=== PATIENT | female | born 1975 | race American Indian/Alaskan Native ===

== ENCOUNTER 2020-10-13 17:00 | Outpatient (REF) | payer MEDICAID, SELFPAY | END 2020-10-13 17:01 | disposition home or self-care (01) | LOC: HO.LAB 17:00 | PROVIDERS: PCP Student in an Organized Health Care Education/Training Program; Visit Provider Internal Medicine | DX: Z20.828 Contact with and (suspected) exposure to other viral communicable diseases (principal) | CPT/HCPCS: C9803; U0003 ==

== ENCOUNTER 2020-10-29 13:18 | Outpatient (REF) | payer MEDICAID, SELFPAY | END 2020-10-29 13:19 | disposition home or self-care (01) | LOC: HO.LAB 13:18 | PROVIDERS: PCP Student in an Organized Health Care Education/Training Program; Visit Provider Internal Medicine | DX: Z20.828 Contact with and (suspected) exposure to other viral communicable diseases (principal) | CPT/HCPCS: C9803; U0003 ==

== ENCOUNTER 2021-08-16 16:30 | Emergency (ER) | payer MEDICAID, SELFPAY ==
--- NOTE | ~2021-08-16 | XR_ITS ---
EXAMINATION: XR LUMBOSACRAL SPINE CLINICAL INFORMATION: Lumbar pain COMPARISON: None TECHNIQUE: Three views of the lumbosacral spine. FINDINGS: The vertebral bodies and posterior elements are unremarkable. There is minimal scoliosis convex to the left which could be positional. The disc spaces are preserved and the vertebral alignment is normal. The paraspinal soft tissues are normal. XR/XR lumbar spine 2-3V IMPRESSION: No acute abnormality seen
--- NOTE | 2021-08-16 17:00 | ED.GENADULT ---
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 Pain radiates down left leg. H/o SI joint inflammation and feels similar. No numbness/tingling/incontinence/fevers/chills. Related Data Previous Rx's Medication Instructions Recorded cyclobenzaprine 10 mg tablet 10 mg PO TID PRN #10 tab 08/16/21 ibuprofen 600 mg tablet 600 mg PO Q8H PRN #20 tab 08/16/21 lidocaine 5 % topical patch 1 patch TOPICAL DAILY #15 ea 08/16/21 (Lidoderm) Allergies Allergy/AdvReac Type Severity Reaction Status Date / Time No Known Allergies Allergy Unverified 07/16/20 17:43 Review of Systems Review of Systems: Yes all other systems are reviewed and are negative Constitutional: Constitutional: Reports no additional constitutional complaints, Denies body ache(s), Denies chills, Denies fever(s), Denies headache(s) and Denies weakness Eyes: Eyes: Reports no additional eye complaints and Denies change in vision ENT: Reports system reviewed and no additional complaints, except as documented, Denies dizziness, Denies headache(s), Denies nasal congestion, Denies nasal discharge and Denies neck pain Cardiovascular: Cardiovascular: Reports no additional cardiovascular complaints, Denies chest pain, Denies leg edema and Denies dyspnea Respiratory: Respiratory: Reports no additional respiratory complaints, Denies cough and Denies dyspnea Gastrointestinal: Gastrointestinal: Reports no additional gastrointestinal complaints, Denies abdominal pain, Denies diarrhea, Denies nausea and Denies vomiting Genitourinary: Genitourinary: Reports no additional female genitourinary complaints and Denies urinary incontinence Musculoskeletal: Musculoskeletal: Reports no additional musculoskeletal complaints, Reports back pain, Denies arthralgias, Denies joint swelling, Denies neck pain, Denies numbness and Denies tingling Integumentary/Breasts: Skin/Breast: Reports system reviewed and no additional complaints, except as docu and Denies rash Neurologic: Reports system reviewed and no additional complaints, except as documented, Denies Abnormal speech present, Denies dizziness, Denies headache(s), Denies numbness, Denies tingling and Denies weakness PMFSH Past Medical History Attestation statement: The following information was validated with the patient. Source: old records reviewed and nursing notes reviewed Social History Social History Advance Directives: No Advance Directives Information Provided: Yes Physical Exam Vital Signs: Vital Signs: Last Vital Signs Temp 98.8 F 08/16/21 17:01 Pulse 78 08/16/21 17:01 Resp 20 08/16/21 17:01 BP 135/87 08/16/21 17:01 Pulse Ox 100 08/16/21 17:01 Body Mass Index 23.1 Const: General: cooperative, healthy appearing, comfortable and no acute distress Orientation/consciousness: patient oriented x3 Limitations: no limitations HENMT: Head: Yes normal to inspection Ears: hearing grossly normal bilaterally General nose exam: Normal external nose present Face and sinus: Yes normal facial exam Mouth: Normal oral and palatal mucosa present Throat: Yes posterior oropharynx normal Eyes: General: appearance normal, both eyes and all related structures Pupils: Equal, round and reactive pupils present Neck: Neck: Yes normal visual inspection Chest: Chest palpation & inspection: normal inspection of the chest Resp: Effort & Inspection: normal respiratory effort Auscultation: clear to auscultation bilaterally Cardio: Rate: regular rate Rhythm: regular rhythm Peripheral pulses: Peripheral pulses 2+ throughout GI: Inspection: Yes normal to inspection Palpation (GI): Soft to palpation and nontender Auscultation: normal bowel sounds Back/Spine/Pelvis: Other: Tenderness to the lumbar low spine with no step offs or deformiries. Tenderness to the posterior left SI joint. Thoracic/Lumbar Spine: thoracic and lumbar spine normal to inspection Skin: General skin exam: no rashes or lesions noted Neuro: General: patient oriented x3, no focal motor deficits and normal sensation to monofilament Cranial nerves: Yes CN's II-XII intact bilaterally, Yes Equal, round and reactive pupils present, Yes Normal facial strength present and Yes Midline tongue present Cognition (Neuro): normal cognition Speech: No Abnormal speech present Gait exam (Neuro): Normal gait present Motor exam (neuro): 5/5 motor strength present throughout Sensory Exam: Normal double simultaneous stimulation for sensation Deep tendon reflexes (DTR's): Right patellar reflex intensity grade: 2+ and Left patellar reflex intensity grade: 2+ Coordination: tandem gait normal Extrem: General: Yes normal to inspection Course Course Course Narrative: 1700-This is a rapid medical exam. Geoffrey was doing heavy strength training and now feels pain in left lower back. Radiates down left leg. Will check lumbar x-ray. Deferred HPI, ROS or PE to primary providers. 1830-X-ray shows no bony abnormality. Exam c/w with sacroilitis. Will refer to ortho Reviewed worrisome signs/symptoms with patient and when to return to ED. Comfortable with discharge home. Medical Decision Making Medical Records Medical records reviewed: Yes I reviewed the patient's medical records. Lab Data Lab results reviewed: Yes I reviewed the patient's lab results. Imaging Data lumbar x-ray: Attestation: I personally reviewed and interpreted this imaging study as follows: Radiologist's impression: TECHNIQUE: Three views of the lumbosacral spine. FINDINGS: The vertebral bodies and posterior elements are unremarkable. There is minimal scoliosis convex to the left which could be positional. The disc spaces are preserved and the vertebral alignment is normal. The paraspinal soft tissues are normal. XR/XR lumbar spine 2-3V IMPRESSION: No acute abnormality seen Discharge Plan Discharge Clinical Impression: SI (sacroiliac) joint inflammation Patient Disposition: Home, Self-Care Instructions: Sacroiliitis (ED) Additional Instructions: heat or ice gentle stretching X-rays show no bony abnormality Prescriptions: New ibuprofen 600 mg tablet 600 mg PO Q8H PRN (Reason: pain) Qty: 20 RF: 0 cyclobenzaprine 10 mg tablet 10 mg PO TID PRN (Reason: muscle spasm) Qty: 10 RF: 0 lidocaine [Lidoderm] 5 % adhesive patch,medicated 1 patch topical DAILY Qty: 15 RF: 0 Referrals: Jovon Pete MD [Physician] - 2 days Print Language: Georgian
[2021-08-16 17:01] VITALS: BP 135/87; PULSE 78; RESP 20; TEMP 37.1; O2SAT 100; BMI 23.1
== END 2021-08-16 18:49 | disposition home or self-care (01) ==
LOC: HO.ED 17:56
PROVIDERS: Emergency Provider Emergency Medicine; PCP Student in an Organized Health Care Education/Training Program
DX: M54.50 Low back pain, unspecified (principal); Z79.899 Other long term (current) drug therapy
CPT/HCPCS: 72100; 99283

== ENCOUNTER 2022-01-03 16:26 | Outpatient (REF) | payer MEDICAID, SELFPAY ==
--- NOTE | ~2022-01-03 | XR_ITS ---
EXAMINATION: LEFT WRIST AND HAND CLINICAL INFORMATION: This is a 46-year-old female with left wrist pain. COMPARISON: Comparison is made to the right wrist and hand dated 01/03/2022. TECHNIQUE: 4 views of left wrist and hand are provided for evaluation. FINDINGS: The soft tissues appear within normal limits. No joint erosions are seen. There is joint space narrowing, subchondral sclerosis and osteophyte formation at the first carpal-metacarpal joint consistent with osteoarthritic change. Similar osteophytic changes are seen at the second carpal-metacarpal joint. No fracture or dislocation is seen. XR/XR hand wrist LT IMPRESSION: 1. There are osteoarthritic changes noted at the first and second carpal-metacarpal joints.
--- NOTE | ~2022-01-03 | XR_ITS ---
EXAMINATION: RIGHT WRIST AND HAND CLINICAL INFORMATION: This is a 46-year-old female with right wrist pain. COMPARISON: Comparison is made to the left wrist and hand dated 01/03/2022. TECHNIQUE: 4 views of right wrist and hand are provided for evaluation. FINDINGS: The soft tissues appear within normal limits. No joint erosions are seen. There is joint space narrowing, subchondral sclerosis and osteophyte formation at the first carpal-metacarpal joint consistent with osteoarthritic change. Similar osteophytic changes are seen at the second carpal-metacarpal joint. No fracture or dislocation is seen. XR/XR hand wrist RT IMPRESSION: 1. There are osteoarthritic changes noted at the first carpal-metacarpal joint.
== END 2022-01-03 16:27 | disposition home or self-care (01) ==
LOC: HO.XRAY 16:26
PROVIDERS: Absent Provider Student in an Organized Health Care Education/Training Program; PCP Student in an Organized Health Care Education/Training Program; Visit Provider Family Medicine
DX: M25.541 Pain in joints of right hand (principal); M25.532 Pain in left wrist
CPT/HCPCS: 73110; 73130

== ENCOUNTER 2022-01-19 13:19 | Outpatient (REF) | payer MEDICAID, SELFPAY ==
--- NOTE | ~2022-01-19 | XR_ITS ---
EXAMINATION: XR HAND, RIGHT CLINICAL INFORMATION: Pain in right hand COMPARISON: None TECHNIQUE: PA, lateral, and oblique views of the right hand. FINDINGS: The bones and soft tissues are normal. No fracture. Alignment is anatomic. Joint spaces are maintained. No erosions or soft tissue calcifications. XR/XR hand RT min 3V IMPRESSION: Normal right hand.
== END 2022-01-19 13:20 | disposition home or self-care (01) ==
LOC: HO.HOSX 13:19
PROVIDERS: Visit Provider Orthopaedic Surgery
DX: M18.11 Unilateral primary osteoarthritis of first carpometacarpal joint, right hand (principal)
CPT/HCPCS: 20605; 73130; 99202; J1020

== ENCOUNTER → 2022-04-12 15:15 | Outpatient (BNV) | payer MEDICAID, OTHER, SELFPAY | PROVIDERS: PCP Student in an Organized Health Care Education/Training Program; Visit Provider Internal Medicine Medical Oncology | DX: D50.9 Iron deficiency anemia, unspecified (principal) | CPT/HCPCS: 99204; 99213 ==

== ENCOUNTER 2022-05-06 07:24 | Outpatient (REF) | payer MEDICAID, SELFPAY | END 2022-05-06 07:25 | disposition home or self-care (01) | LOC: HO.MDS 07:24 | PROVIDERS: PCP Student in an Organized Health Care Education/Training Program; Visit Provider Internal Medicine Medical Oncology | DX: D50.9 Iron deficiency anemia, unspecified (principal) | CPT/HCPCS: 96365; 96366; J1200; J1750; Q0163 ==

== ENCOUNTER 2024-02-07 17:08 | Emergency (ER) | payer SELFPAY ==
--- NOTE | ~2024-02-07 | US_ITS ---
EXAMINATION: US PELVIS CLINICAL INFORMATION: Heavy vaginal bleeding COMPARISON: CT from 05/18/2017 and ultrasound from 05/18/2017 TECHNIQUE: Ultrasound of the pelvis is performed using both transabdominal and transvaginal transducers along with Doppler. Transvaginal imaging is performed due to inadequate visualization transabdominally. FINDINGS: Uterus: The uterus is retroverted and measures 8.5 x 5.4 x 5.3 cm. There is a heterogeneous hypoechoic fibroid within the fundus of the uterus measuring 1.7 x 1.6 x 2.1 cm, previously measuring 0.8 cm in maximum diameter. No new fibroids seen. The double wall endometrial thickness is 8 mm. Adnexa: Both ovaries are visualized. There is normal color flow to the adnexa. There is no ovarian torsion. There is no pelvic fluid collection. Right ovary measures 2.2 x 1.8 x 2.6 cm. Trace free fluid seen adjacent to the right ovary Left ovary measures 3.2 x 1.9 x 2.5 cm. There is a anechoic dominant follicle within the left ovary measuring 1.7 cm. US/US pelvic and transvaginal IMPRESSION: 1. Uterus is retroverted. There is a fibroid within the fundus of the uterus which has increased in size compared to the prior ultrasound. 2. Endometrium is normal in thickness. 3. Ovaries are unremarkable.
[2024-02-07 17:29] VITALS: BP 128/85; PULSE 82; RESP 16; TEMP 36.4; O2SAT 98; BMI 23.5
--- NOTE | 2024-02-07 17:29 | ED_ITS ---
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 Patient states that she had her usual menses last Monday which ended on Monday. She states that yesterday she developed vaginal bleeding, states that she has been passive lots, estimating that she is using 2 pads per hour. She endorses slight dizziness and lightheadedness. She states that she typically gets her menses regularly. She denies any headache, blurred vision, chest pain, shortness of breath, abdominal pain, nausea, vomiting or diarrhea. Denies history of similar symptoms in the past. She is sexually active with 1 partner, no concerns for sexually transmitted infections. No other concerns at this time. MD complaint: Abnormal uterine bleeding Onset (ago): day(s) Radiation: non-radiation Quality: aching Pain Consistency: constant Relieving factors: none Exacerbating factors: none Associated symptoms: denies other symptoms Treatments prior to arrival: none Related Data Home Medications ?Medication ?Instructions ?Recorded ?Confirmed cetirizine 10 mg tablet 1 tab PO DAILY 04/12/22 02/01/23 omeprazole 20 mg capsule,delayed 1 cap PO DAILY 04/12/22 02/01/23 release Previous Rx's ?Medication ?Instructions ?Recorded lidocaine 5 % topical patch 1 patch topical DAILY #15 ea 08/16/21 (Lidoderm) medroxyprogesterone 10 mg tablet 10 mg PO DAILY 5 days #5 tabs 02/08/24 (Provera) Allergies Allergy/AdvReac Type Severity Reaction Status Date / Time No Known Allergies Allergy Verified 02/07/24 17:34 Review of Systems 2 Review of Systems: Yes all other systems are reviewed and are negative Constitutional: Constitutional: Reports as per [facility] Past Medical History Attestation statement: The following information was validated with the patient. 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 Physical Exam ED Vital Signs: Vital Signs - 24 hr 02/07/24 22:19 02/08/24 01:58 02/08/24 06:21 Temperature 97.7 F 98.2 F 97.8 F Pulse Rate 73 79 93 Respiratory Rate 18 18 16 Blood Pressure 129/87 131/81 102/80 Pulse Oximetry 99 99 97 Oxygen Delivery Method Room Air Room Air Room Air 02/08/24 10:26 02/08/24 10:27 02/08/24 10:27 Temperature Pulse Rate 89 100 121 H Respiratory Rate Blood Pressure 126/85 125/91 H 128/81 Pulse Oximetry Oxygen Delivery Method 02/08/24 11:30 Temperature 98.1 F Pulse Rate 101 H Respiratory Rate 18 Blood Pressure 128/81 Pulse Oximetry 96 Oxygen Delivery Method Room Air BMI result Body Mass Index 23.5 Const General: cooperative, comfortable and no acute distress Orientation/consciousness: patient oriented x3 Limitations: no limitations HENMT Head: Yes normal to inspection, Yes normocephalic and Yes atraumatic Ears: hearing grossly normal bilaterally General nose exam: Normal external nose present Face and sinus: Yes normal facial exam Mouth: Normal oral and palatal mucosa present, oropharynx normal and moist mucous membranes Throat: Yes posterior oropharynx normal Eyes General: appearance normal, both eyes and all related structures Eyelids: Yes eyelids normal Conjunctivae: conjunctivae normal Sclerae: sclerae normal Pupils: Equal, round and reactive pupils present EOM: EOMs intact bilaterally Neck Neck: Yes normal visual inspection, Yes full ROM and Yes no lymphadenopathy Lymphatic: no lymphadenopathy noted Chest Chest palpation & inspection: normal inspection of the chest Resp Effort & Inspection: normal respiratory effort and able to speak in complete sentences Auscultation: clear to auscultation bilaterally, no crackles, no rales, no rhonchi and no wheezes Cardio Rate: regular rate Rhythm: regular rhythm Heart sounds: S1 normal heart sound present and S2 normal heart sound present GI Inspection: Yes normal to inspection Other: Cervix is closed, with moderately sized blood clots noted. No significant active vaginal bleeding noted. External Female Exam: normal external appearance and normal appearance of the urethra Speculum Exam - Vagina: normal appearance of the vagina Speculum Exam - Cervix: normal appearance of the cervix Skin General skin exam: no rashes or lesions noted Trauma: no lacerations or abrasions Wounds: no wounds Neuro General: patient oriented x3 and moves all extremities Cranial nerves: Yes Equal, round and reactive pupils present Extrem General: Yes normal to inspection Right upper extremity: normal to inspection Left upper extremity: normal to inspection Right lower extremity: normal to inspection Left lower extremity: normal to inspection Course Course Course Narrative: RME:?48 Welsh-speaking female here w/ increased vaginal bleeding and clots that began yesterday, worsening today. called and spoke w/ PCP who advised her to come to ED. denies chance of . LMP 01/31/24 which lasted 3 days. she began bleeding again yesterday, endorses heavy bleeding with clots which is not typical for her. changing her pad every 30 minutes today. admits her cycles are typically regular. endorses assoc dizziness and headache. labs, ua, u preg, pelvic US ordered. Full HPI, ROS and PE to be performed by the primary ED provider. Reevaluation(s) Reevaluation #1: Repeat CBC revealing H&H a slight decrease at 8.5/27.3. She is not orthostatic. Patient does not smoke cigarettes, no history or family history of clotting disorders. Patient eligible to start on Provera. Discussed case with my attending physician, Dr. Johnson. Advised the patient to follow-up with her OBGYN, she states that she sees she can be health center. Advised to call today for an appointment. Given return precautions. She understands and agrees with plan. Patient stable for discharge. Time: 08:24 Medications Administered Discontinued Medications Generic Name Dose Route Start Last Admin Trade Name Freq PRN Reason Stop Dose Admin Medroxyprogesterone Acetate 10 mg 02/08/24 10:22 02/08/24 11:03 Medroxyprogesterone Acetate 5 Mg Tablet PO 02/08/24 10:23 10 mg ONCE ONE Administration Medical Decision Making Medical Decision Making [facility] Narrative: This is a 48-year-old female presenting to the emergency department for evaluation of abnormal vaginal bleeding which started yesterday. On arrival, vital signs within normal limits. She is nontoxic appearing. Patient was not evaluated by me until 8:00 a.m. on February 08, 2024. She has been in the emergency room for approximately 14 hours prior to my evaluation. Original CBC revealing hemoglobin and hematocrit at 9.2/30.3. Urine negative. Chemistry within normal limits. Given she has been the emergency sometime, will repeat CBC as patient has reports that she has had been using 2 pads per hour since yesterday. She also endorses dizziness. Pelvic examination revealing grape size vaginal lots with slight active bleeding noted. Possibly removed using suction. Patient was also evaluated by my attending physician, Dr. Johnson. Ultrasound revealing fibroid within the fundus of the uterus which has increased in size compared to prior ultrasound. Patient does have an OBGYN who she can follow up with. Differential Diagnosis Differential Diagnoses: The differential diagnosis associated with the presentation includes Abnormal uterine bleeding, , UTI, anemia Admission/Observation Consideration of admission/observation: Escalation of care including admission/observation considered Lab Data MDM Lab Attestation statement: I reviewed the patient's lab results. 02/08/24 10:32 02/08/24 07:40 Labs: Lab Results 02/07/24 02/08/24 02/08/24 Range/Units 18:50 07:39 07:40 WBC 8.6 7.4 (4.8-10.8) X10*3/uL RBC 3.94 L 3.57 L (4.20-5.50) X10*6/uL Hgb 9.2 L D 8.5 L (12.0-16.0) g/dl Hct 30.3 L D 27.3 L (37.0-47.0) % MCV 76.9 L 76.5 L (80.0-98.0) fL MCH 23.4 L 23.8 L (27.0-33.0) pg MCHC 30.4 L 31.1 (31.0-35.0) g/dl RDW 16.9 H 17.0 H (11.0-16.0) % Plt Count 409 H D 346 (160-400) X10*3/uL MPV 10.1 9.7 (9.4-12.3) fL Immature Gran % (Auto) 0.3 0.3 (0.0-0.4) % Neut % (Auto) 66.7 66.1 (45-73) % Lymph % (Auto) 24.4 22.4 (20-40) % [place] % (Auto) 5.9 7.9 (2-11) % Eos % (Auto) 2.2 3.0 (0-4) % Baso % (Auto) 0.5 0.3 (0-2) % Lymph # (Auto) 2.1 1.7 (1.2-4.9) X10*3/uL [place] # (Auto) 0.5 0.6 (0.1-1.2) X10*3/uL Eos # (Auto) 0.2 0.2 (0.0-0.4) X10*3/uL Baso # (Auto) 0.0 0.0 (0.0-0.2) X10*3/uL Abs Immat Gran (auto) 0.03 0.02 (0.00-0.03) X10*3/uL Absolute Neuts (auto) 5.7 4.9 (2.0-8.3) x10*3/uL Absolute Nucleated RBC 0.000 0.000 (0.0-0.012) X10*3/uL Nucleated RBC % (auto) 0.0 0.0 (0.0-0.2) /100WBC PT 12.0 (11.1-13.3) SEC INR 1.0 (0.9-1.1) APTT 29.2 (26.0-36.8) SEC Sodium 138 140 (135-145) mmol/L Potassium 4.3 4.4 (3.3-5.1) mmol/L Chloride 107 108 (96-108) mmol/L Carbon Dioxide 26 26 (22-29) mmol/L Anion Gap 9 L 10 L (12-20) BUN 10 9 (9-16) mg/dL Creatinine 0.79 0.72 (0.5-1.4) mg/dL Estim Creat Clear Calc 76.0 83.4 Estimated GFR > 60 > 60 Random Glucose 93 95 (60-115) mg/dL Calcium 9.7 9.2 (8.4-10.2) mg/dL Magnesium 2.0 (1.6-2.6) mg/dL Total Bilirubin 0.2 0.3 (0.0-1.0) mg/dL AST 17 13 (5-31) U/L ALT 14 12 (0-31) U/L Alkaline Phosphatase 51 49 (39-117) U/L Total Protein 8.1 H 7.3 (6.5-8.0) g/dL Albumin 4.3 4.0 (3.5-5.0) g/dL Urine Color Red A Urine Appearance Cloudy Urine pH 6.0 (5.0-9.0) Ur Specific [place] 1.010 (1.005-1.025) Urine Protein Trace (Neg-Trace) mg/dL Urine Glucose (UA) Negative (Negative) mg/dL Urine Ketones Negative (Negative) mg/dL Urine Blood Large (3+) H (Negative) Urine Nitrite Negative (Negative) Ur Leukocyte Esterase Small (1+) H (Negative) Urine RBC >20 H (0-2) /HPF Urine WBC 0-5 (0-5) /HPF Ur Squamous Epith Cells 3-5 (0-2) /HPF Urine Bacteria Trace (None Seen) Hyaline Casts 0-2 (0-2) /LPF Urine Test NEGATIVE (NEGATIVE) Blood Type B Positive Antibody Screen NEGATIVE 02/08/24 Range/Units 10:32 WBC 7.9 (4.8-10.8) X10*3/uL RBC 3.71 L (4.20-5.50) X10*6/uL Hgb 8.8 L (12.0-16.0) g/dl Hct 28.4 L (37.0-47.0) % MCV 76.5 L (80.0-98.0) fL MCH 23.7 L (27.0-33.0) pg MCHC 31.0 (31.0-35.0) g/dl RDW 16.9 H (11.0-16.0) % Plt Count 396 (160-400) X10*3/uL MPV 9.7 (9.4-12.3) fL Immature Gran % (Auto) 0.4 (0.0-0.4) % Neut % (Auto) 68.3 (45-73) % Lymph % (Auto) 22.5 (20-40) % [place] % (Auto) 5.9 (2-11) % Eos % (Auto) 2.5 (0-4) % Baso % (Auto) 0.4 (0-2) % Lymph # (Auto) 1.8 (1.2-4.9) X10*3/uL [place] # (Auto) 0.5 (0.1-1.2) X10*3/uL Eos # (Auto) 0.2 (0.0-0.4) X10*3/uL Baso # (Auto) 0.0 (0.0-0.2) X10*3/uL Abs Immat Gran (auto) 0.03 (0.00-0.03) X10*3/uL Absolute Neuts (auto) 5.4 (2.0-8.3) x10*3/uL Absolute Nucleated RBC 0.000 (0.0-0.012) X10*3/uL Nucleated RBC % (auto) 0.0 (0.0-0.2) /100WBC PT (11.1-13.3) SEC INR (0.9-1.1) APTT (26.0-36.8) SEC Sodium (135-145) mmol/L Potassium (3.3-5.1) mmol/L Chloride (96-108) mmol/L Carbon Dioxide (22-29) mmol/L Anion Gap (12-20) BUN (9-16) mg/dL Creatinine (0.5-1.4) mg/dL Estim Creat Clear Calc Estimated GFR Random Glucose (60-115) mg/dL Calcium (8.4-10.2) mg/dL Magnesium (1.6-2.6) mg/dL Total Bilirubin (0.0-1.0) mg/dL AST (5-31) U/L ALT (0-31) U/L Alkaline Phosphatase (39-117) U/L Total Protein (6.5-8.0) g/dL Albumin (3.5-5.0) g/dL Urine Color Urine Appearance Urine pH (5.0-9.0) Ur Specific [place] (1.005-1.025) Urine Protein (Neg-Trace) mg/dL Urine Glucose (UA) (Negative) mg/dL Urine Ketones (Negative) mg/dL Urine Blood (Negative) Urine Nitrite (Negative) Ur Leukocyte Esterase (Negative) Urine RBC (0-2) /HPF Urine WBC (0-5) /HPF Ur Squamous Epith Cells (0-2) /HPF Urine Bacteria (None Seen) Hyaline Casts (0-2) /LPF Urine Test (NEGATIVE) Blood Type Antibody Screen Radiology Impression Discussion of test interpretation with radiology: I have reviewed the radiologist's reading. External Record Review External record reviewed: Inpatient record, Office record, Outpatient record, Prior outpatient labs, Prior outpatient radiology, Primary care record and Outside ED record Discharge Plan Discharge Clinical Impression: Dysfunctional uterine bleeding Patient Disposition: Home, Self-Care Instructions: Dysfunctional Uterine Bleeding (ED) Additional Instructions: You were seen in the emergency department due to abnormal uterine bleeding. Your blood work and physical exam was reassuring. I am starting you on a medication to help stop the vaginal bleeding. You already received this dose today, please take your next dose tomorrow. This medication is temporary, you need to follow-up with your OBGYN. Call today to make a urgent appointment. Drink plenty of fluids and get plenty of rest. If any new or worsening symptoms occur including but not limited to dizziness, lightheadedness, chest pain, shortness of breath, increased vaginal bleeding, please return for re-evaluation. Prescriptions: New medroxyprogesterone [Provera] 10 mg tablet 10 mg PO DAILY 5 Days Qty: 5 0RF No Action cetirizine 10 mg tablet 1 tab PO DAILY omeprazole 20 mg capsule,delayed release(DR/EC) 1 cap PO DAILY lidocaine [Lidoderm] 5 % adhesive patch,medicated 1 patch topical DAILY Qty: 15 0RF Rx Instructions: leave on most painful area for up to 12 hrs Stand Alone Forms: Work/School Release Interventions: ED Discharge Assessment Last Done: 02/08/24 11:30 Discharge Date/Time: 02/08/24 11:31 Print Language: Welsh
[2024-02-07 18:56] LABS: MANUAL DIFF FLAG NO
[2024-02-07 19:01] LABS: Basophils Percent Auto 0.5 % (0-2); Eosinophils Absolute Auto 0.2 X10*3/uL (0.0-0.4); Eosinophils Percent Auto 2.2 % (0-4); Hematocrit 30.3 % (37.0-47.0); Hemoglobin 9.2 g/dl (12.0-16.0); Imm Gran Abs Auto 0.03 X10*3/uL (0.00-0.03); Imm Gran Pct Auto 0.3 % (0.0-0.4); Lymphocytes Absolute Auto 2.1 X10*3/uL (1.2-4.9); Lymphocytes Percent Auto 24.4 % (20-40); Mean Corpuscular HGB Conc 30.4 g/dl (31.0-35.0); Mean Corpuscular Hemoglobin 23.4 pg (27.0-33.0); Mean Corpuscular Volume 76.9 fL (80.0-98.0); Mean Platelet Volume 10.1 fL (9.4-12.3); Monocytes Absolute Auto 0.5 X10*3/uL (0.1-1.2); Monocytes Percent Auto 5.9 % (2-11); Neutrophils Absolute Auto 5.7 x10*3/uL (2.0-8.3); Neutrophils Percent Auto 66.7 % (45-73); Platelet Count 409 X10*3/uL (160-400); Red Blood Count 3.94 X10*6/uL (4.20-5.50); Red Cell Distribution Width 16.9 % (11.0-16.0); White Blood Count 8.6 X10*3/uL (4.8-10.8)
[2024-02-07 19:04] LABS: Appearance Urine Cloudy; Color Urine Red; Glucose Urine UA Negative (Negative); Leukocyte Esterase Urine Small (1+) (Negative); Nitrite Urine Negative (Negative); UMIC TRIGGER UACC YES; UPreg QC Valid YES; Urine Blood Large (3+) (Negative); Urine Ketones Negative (Negative); Urine Pregnancy NEGATIVE (NEGATIVE); Urine Protein Trace mg/dL (Neg-Trace)
[2024-02-07 19:15] LABS: Bacteria Urine Trace (None Seen); Hyaline Casts Urine 0-2 /LPF (0-2); RBC Urine >20 /HPF (0-2); UACC Culture Trigger YES; WBC Urine 0-5 /HPF (0-5)
[2024-02-07 19:16] LABS: Alanine Aminotransferase 14 U/L (0-31); Albumin Level 4.3 g/dL (3.5-5.0); Alkaline Phosphatase 51 U/L (39-117); Anion Gap 9 (12-20); Aspartate Amino Transferase 17 U/L (5-31); Bilirubin Total 0.2 mg/dL (0.0-1.0); Blood Urea Nitrogen 10 mg/dL (9-16); Calcium 9.7 mg/dL (8.4-10.2); Carbon Dioxide 26 mmol/L (22-29); Chloride 107 mmol/L (96-108); Estimated Glomerular Filt Rate > 60; Glucose Random 93 mg/dL (60-115); Potassium 4.3 mmol/L (3.3-5.1); Sodium 138 mmol/L (135-145); Total Protein 8.1 g/dL (6.5-8.0)
[2024-02-07 22:19] VITALS: BP 129/87; PULSE 73; RESP 18; TEMP 36.5; O2SAT 99
[2024-02-08 01:58] VITALS: BP 131/81; PULSE 79; RESP 18; TEMP 36.8; O2SAT 99
[2024-02-08 06:21] VITALS: BP 102/80; PULSE 93; RESP 16; TEMP 36.6; O2SAT 97
[2024-02-08 07:45] LABS: MANUAL DIFF FLAG NO
[2024-02-08 07:48] LABS: Basophils Percent Auto 0.3 % (0-2); Eosinophils Absolute Auto 0.2 X10*3/uL (0.0-0.4); Hematocrit 27.3 % (37.0-47.0); Hemoglobin 8.5 g/dl (12.0-16.0); Imm Gran Abs Auto 0.02 X10*3/uL (0.00-0.03); Imm Gran Pct Auto 0.3 % (0.0-0.4); Lymphocytes Absolute Auto 1.7 X10*3/uL (1.2-4.9); Lymphocytes Percent Auto 22.4 % (20-40); Mean Corpuscular HGB Conc 31.1 g/dl (31.0-35.0); Mean Corpuscular Hemoglobin 23.8 pg (27.0-33.0); Mean Corpuscular Volume 76.5 fL (80.0-98.0); Mean Platelet Volume 9.7 fL (9.4-12.3); Monocytes Absolute Auto 0.6 X10*3/uL (0.1-1.2); Monocytes Percent Auto 7.9 % (2-11); Neutrophils Absolute Auto 4.9 x10*3/uL (2.0-8.3); Neutrophils Percent Auto 66.1 % (45-73); Platelet Count 346 X10*3/uL (160-400); Red Blood Count 3.57 X10*6/uL (4.20-5.50); White Blood Count 7.4 X10*3/uL (4.8-10.8)
[2024-02-08 08:01] LABS: Alanine Aminotransferase 12 U/L (0-31); Alkaline Phosphatase 49 U/L (39-117); Anion Gap 10 (12-20); Aspartate Amino Transferase 13 U/L (5-31); Bilirubin Total 0.3 mg/dL (0.0-1.0); Blood Urea Nitrogen 9 mg/dL (9-16); Calcium 9.2 mg/dL (8.4-10.2); Carbon Dioxide 26 mmol/L (22-29); Chloride 108 mmol/L (96-108); Creatinine Clr Calc Pharmacy 83.4; Estimated Glomerular Filt Rate > 60; Glucose Random 95 mg/dL (60-115); Potassium 4.4 mmol/L (3.3-5.1); Sodium 140 mmol/L (135-145); Total Protein 7.3 g/dL (6.5-8.0)
[2024-02-08 08:12] LABS: Partial Thromboplastin Time 29.2 SEC (26.0-36.8)
[2024-02-08 10:26] VITALS: BP 126/85; PULSE 89
[2024-02-08 10:27] VITALS: BP 125/91; BP 128/81; PULSE 100; PULSE 121
[2024-02-08 10:37] LABS: MANUAL DIFF FLAG NO
[2024-02-08 10:40] LABS: Basophils Percent Auto 0.4 % (0-2); Eosinophils Absolute Auto 0.2 X10*3/uL (0.0-0.4); Eosinophils Percent Auto 2.5 % (0-4); Hematocrit 28.4 % (37.0-47.0); Hemoglobin 8.8 g/dl (12.0-16.0); Imm Gran Abs Auto 0.03 X10*3/uL (0.00-0.03); Imm Gran Pct Auto 0.4 % (0.0-0.4); Lymphocytes Absolute Auto 1.8 X10*3/uL (1.2-4.9); Lymphocytes Percent Auto 22.5 % (20-40); Mean Corpuscular Hemoglobin 23.7 pg (27.0-33.0); Mean Corpuscular Volume 76.5 fL (80.0-98.0); Mean Platelet Volume 9.7 fL (9.4-12.3); Monocytes Absolute Auto 0.5 X10*3/uL (0.1-1.2); Monocytes Percent Auto 5.9 % (2-11); Neutrophils Absolute Auto 5.4 x10*3/uL (2.0-8.3); Neutrophils Percent Auto 68.3 % (45-73); Platelet Count 396 X10*3/uL (160-400); Red Blood Count 3.71 X10*6/uL (4.20-5.50); Red Cell Distribution Width 16.9 % (11.0-16.0); White Blood Count 7.9 X10*3/uL (4.8-10.8)
[2024-02-08] MEDS: medroxyPROGESTERone Acetate 5 MG TABLET 10 MG PO (11:03)
[2024-02-08 11:30] VITALS: BP 128/81; PULSE 101; RESP 18; TEMP 36.7; O2SAT 96
== END 2024-02-08 11:31 | disposition home or self-care (01) ==
PROVIDERS: Physician Assistant Medical; Emergency Provider Emergency Medicine Emergency Medical Services
DX: N93.8 Other specified abnormal uterine and vaginal bleeding (principal); N93.9 Abnormal uterine and vaginal bleeding, unspecified; R10.2 Pelvic and perineal pain; Z79.899 Other long term (current) drug therapy
CPT/HCPCS: 36415; 76830; 76856; 80053; 81001; 81003; 81025; 83735; 85025; 85610; 85730; 86850; 86900; 86901; 87086; 87147; 99283; 99284

== ENCOUNTER 2024-02-20 14:19 | Outpatient (REF) | payer SELFPAY ==
[2024-02-26 21:13] LABS: HPV mRNA E6/E7 rflx Not Detected (Not Detected)
[2024-02-27 09:14] LABS: C. trachomatis RNA TMA NOT DETECTED (NOT DETECTED); N. gonorrhoeae RNA TMA NOT DETECTED (NOT DETECTED)
[2024-02-27 11:53] LABS: Trichomonas (NAAT) NOT DETECTED (NOT DETECTED)
== END 2024-02-20 14:20 | disposition home or self-care (01) ==
LOC: HO.HHCLNP 14:19
PROVIDERS: Visit Provider Advanced Practice Midwife
DX: Z12.4 Encounter for screening for malignant neoplasm of cervix (principal); Z11.51 Encounter for screening for human papillomavirus (HPV); N93.9 Abnormal uterine and vaginal bleeding, unspecified
CPT/HCPCS: 36415; 87491; 87591; 87624; 87661; 88142

== ENCOUNTER 2024-02-23 13:22 | Emergency (ER) | payer SELFPAY ==
[2024-02-23 14:07] VITALS: BP 130/87; PULSE 96; RESP 16; TEMP 36.6; O2SAT 100; BMI 25.8
--- NOTE | 2024-02-23 14:09 | ED.GENADULT ---
HPI - General Adult General Chief complaint: Vaginal Bleeding Stated complaint: blood in urine ? 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 Patient was seen here about 2 weeks ago for vaginal bleeding, she was diagnosed with fibroids She reports that her menstrual cycle restarted yesterday and she has been having vaginal bleeding. She reports feeling dizzy and ?pale. ? She followed up with [facility] on Monday and then called him again today and was referred to the ER She reports some mild lower pelvic pain Denies any burning with urination or blood in the urine The patient is concerned that she is anemic Denies any black or bloody stool Related Data Home Medications ?Medication ?Instructions ?Recorded ?Confirmed cetirizine 10 mg tablet 1 tab PO DAILY 04/12/22 02/01/23 omeprazole 20 mg capsule,delayed 1 cap PO DAILY 04/12/22 02/01/23 release Previous Rx's ?Medication ?Instructions ?Recorded lidocaine 5 % topical patch 1 patch topical DAILY #15 ea 08/16/21 (Lidoderm) medroxyprogesterone 10 mg tablet 10 mg PO DAILY 5 days #5 tabs 02/08/24 (Provera) ferrous sulfate 325 mg (65 mg 325 mg PO Q OTHER DAY #30 tabs 02/23/24 iron) tablet (Iron (ferrous sulfate)) Allergies Allergy/AdvReac Type Severity Reaction Status Date / Time No Known Allergies Allergy Verified 02/23/24 14:12 Review of Systems Constitutional: Constitutional: Denies body ache(s), Denies chills and Denies fever(s) Eyes: Eyes: Denies blurry vision ENT: Reports dizziness and Denies sore throat Cardiovascular: Cardiovascular: Denies chest pain, Reports lightheadedness and Denies dyspnea Respiratory: Respiratory: Denies cough and Denies dyspnea Gastrointestinal: Gastrointestinal: Denies abdominal pain, Denies nausea and Denies vomiting Musculoskeletal: Musculoskeletal: Denies back pain Integumentary/Breasts: Skin/Breast: Denies rash Neurologic: Reports dizziness PMFSH Past Medical History Medical History Allergic rhinitis Acute upper respiratory infection Constipation Abdominal pain Acute sinusitis GERD (gastroesophageal reflux disease) Family History Family History Other No family history of cancer Social History Social History Household Members: Children Housing: House Are you a primary respiratory care technician to a significant other at home: No Do you presently have visiting nurse or other home services: No Patient Tobacco Use Status: Never used Tobacco Advance Directives: No Advance Directives Information Provided: No service: No Current occupational status: employed 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 Physical Exam ED Vital Signs: Vital Signs - 24 hr 02/23/24 14:07 02/23/24 18:06 02/23/24 19:57 Temperature 97.9 F 97.9 F 98.4 F Pulse Rate 96 100 87 Respiratory Rate 16 18 18 Blood Pressure 130/87 134/82 129/83 Pulse Oximetry 100 100 100 Oxygen Delivery Method Room Air Room Air Room Air BMI result Body Mass Index 25.8 Const General: healthy appearing, comfortable, no acute distress, alert and awake Nutritional Appearance: well nourished Orientation/consciousness: patient oriented x3 HENMT Head: Yes normocephalic and Yes atraumatic Eyes Eyelids: Yes eyelids normal Conjunctivae: conjunctivae normal Sclerae: sclerae normal Corneas: corneas normal Pupils: Equal, round and reactive pupils present EOM: EOMs intact bilaterally Neck Neck: Yes full ROM Resp Effort & Inspection: normal respiratory effort, able to speak in complete sentences and not labored GI Inspection: No distended Palpation (GI): Soft to palpation, not firm, nontender, no guarding and not rigid Skin General skin exam: elasticity normal Neuro General: patient oriented x3 Cranial nerves: Yes Equal, round and reactive pupils present and Yes Bilaterally intact EOM present Cognition (Neuro): normal cognition Extrem Other: Moving all extremities well without any obvious deformities Course Course Course Narrative: RME performed by Kandace Sommers PA-C. Patient is a 48 year old assigned female at presenting to the emergency department with lower abdominal pain and vaginal bleeding. Patient states that she was seen here previously for this and believes that her blood counts are low. Detailed physical exam and review of systems are deferred to the sexual assault counselor. Labs ordered. Patient placed back in the waiting room pending room availability and results. Medical Decision Making Medical Decision Making [facility] Narrative: 48-year-old female presents for evaluation of vaginal bleeding and symptoms of anemia. She has been worked up for this in the past. She is found to be anemic with a hemoglobin of 7.1 with a hematocrit of 23.9. Her MCV is 74.7. This is consistent with iron deficiency anemia, likely related to vaginal bleeding. This may be related to fibroids versus perimenopausal bleeding. She is following closely with OBGYN. Her vital signs are stable, she is hemodynamically stable. Plan to transfuse 1 unit for symptomatic treatment and she will follow-up with her OBGYN. I discussed the risks and benefits of blood transfusion with the patient using a supervisor quilting to ensure understanding Differential Diagnosis Differential Diagnoses: The differential diagnosis associated with the presentation includes Symptomatic anemia Iron-deficiency anemia Perimenopausal bleeding Menorrhagia Metromenorrhagia Uterine fibroids Lab Data MDM Lab Attestation statement: I reviewed the patient's lab results. See above 02/23/24 14:17 02/23/24 14:17 Labs: Lab Results 02/23/24 02/23/24 Range/Units 14:17 14:35 WBC 10.7 (4.8-10.8) X10*3/uL RBC 3.20 L (4.20-5.50) X10*6/uL Hgb 7.1 L (12.0-16.0) g/dl Hct 23.9 L (37.0-47.0) % MCV 74.7 L (80.0-98.0) fL MCH 22.2 L (27.0-33.0) pg MCHC 29.7 L (31.0-35.0) g/dl RDW 16.3 H (11.0-16.0) % Plt Count 347 (160-400) X10*3/uL MPV 10.3 (9.4-12.3) fL Immature Gran % (Auto) 0.3 (0.0-0.4) % Neut % (Auto) 79.8 H (45-73) % Lymph % (Auto) 13.0 L (20-40) % [place] % (Auto) 6.1 (2-11) % Eos % (Auto) 0.4 (0-4) % Baso % (Auto) 0.4 (0-2) % Lymph # (Auto) 1.4 (1.2-4.9) X10*3/uL [place] # (Auto) 0.7 (0.1-1.2) X10*3/uL Eos # (Auto) 0.0 (0.0-0.4) X10*3/uL Baso # (Auto) 0.0 (0.0-0.2) X10*3/uL Abs Immat Gran (auto) 0.03 (0.00-0.03) X10*3/uL Absolute Neuts (auto) 8.6 H (2.0-8.3) x10*3/uL Absolute Nucleated RBC 0.000 (0.0-0.012) X10*3/uL Nucleated RBC % (auto) 0.0 (0.0-0.2) /100WBC PT 12.4 (11.1-13.3) SEC INR 1.0 (0.9-1.1) APTT 27.4 (26.0-36.8) SEC Sodium 139 (135-145) mmol/L Potassium 4.0 (3.3-5.1) mmol/L Chloride 107 (96-108) mmol/L Carbon Dioxide 27 (22-29) mmol/L Anion Gap 9 L (12-20) BUN 9 (9-16) mg/dL Creatinine 0.72 (0.5-1.4) mg/dL Estim Creat Clear Calc 88.2 Estimated GFR > 60 Random Glucose 101 (60-115) mg/dL Calcium 8.9 (8.4-10.2) mg/dL Magnesium 1.9 (1.6-2.6) mg/dL Total Bilirubin 0.4 (0.0-1.0) mg/dL AST 16 (5-31) U/L ALT 9 (0-31) U/L Alkaline Phosphatase 45 (39-117) U/L Total Protein 7.5 (6.5-8.0) g/dL Albumin 4.2 (3.5-5.0) g/dL Urine Color Yellow Urine Appearance Clear Urine pH 6.0 (5.0-9.0) Ur Specific [place] 1.015 (1.005-1.025) Urine Protein Trace (Neg-Trace) mg/dL Urine Glucose (UA) Negative (Negative) mg/dL Urine Ketones Negative (Negative) mg/dL Urine Blood Large (3+) H (Negative) Urine Nitrite Negative (Negative) Ur Leukocyte Esterase Small (1+) H (Negative) Urine RBC 3-5 H (0-2) /HPF Urine WBC 0-5 (0-5) /HPF Ur Squamous Epith Cells 3-5 (0-2) /HPF Urine Bacteria Trace (None Seen) Hyaline Casts 0-2 (0-2) /LPF Blood Type B Positive Antibody Screen NEGATIVE Crossmatch See Detail Discharge Plan Discharge Clinical Impression: Symptomatic anemia Patient Disposition: Home, Self-Care Instructions: Anemia (ED) Additional Instructions: Your workup in the ER today was significant for anemia. Your hemoglobin was low at 7.1 and given your dizziness you were given a blood transfusion. I recommend that you take iron sulfate every other day to help treat your anemia Follow-up with your OBGYN office Return for new or worsening symptoms Prescriptions: New ferrous sulfate [Iron (ferrous sulfate)] 325 mg (65 mg iron) tablet 325 mg PO Q OTHER DAY Qty: 30 0RF No Action cetirizine 10 mg tablet 1 tab PO DAILY omeprazole 20 mg capsule,delayed release(DR/EC) 1 cap PO DAILY lidocaine [Lidoderm] 5 % adhesive patch,medicated 1 patch topical DAILY Qty: 15 0RF Rx Instructions: leave on most painful area for up to 12 hrs medroxyprogesterone [Provera] 10 mg tablet 10 mg PO DAILY 5 Days Qty: 5 0RF Print Language: Yakut
[2024-02-23 14:21] LABS: MANUAL DIFF FLAG NO
[2024-02-23 14:23] LABS: Basophils Percent Auto 0.4 % (0-2); Eosinophils Percent Auto 0.4 % (0-4); Hematocrit 23.9 % (37.0-47.0); Hemoglobin 7.1 g/dl (12.0-16.0); Imm Gran Abs Auto 0.03 X10*3/uL (0.00-0.03); Imm Gran Pct Auto 0.3 % (0.0-0.4); Lymphocytes Absolute Auto 1.4 X10*3/uL (1.2-4.9); Mean Corpuscular HGB Conc 29.7 g/dl (31.0-35.0); Mean Corpuscular Hemoglobin 22.2 pg (27.0-33.0); Mean Corpuscular Volume 74.7 fL (80.0-98.0); Mean Platelet Volume 10.3 fL (9.4-12.3); Monocytes Absolute Auto 0.7 X10*3/uL (0.1-1.2); Monocytes Percent Auto 6.1 % (2-11); Neutrophils Absolute Auto 8.6 x10*3/uL (2.0-8.3); Neutrophils Percent Auto 79.8 % (45-73); Platelet Count 347 X10*3/uL (160-400); Red Cell Distribution Width 16.3 % (11.0-16.0); White Blood Count 10.7 X10*3/uL (4.8-10.8)
[2024-02-23 14:28] LABS: Prothrombin Time 12.4 SEC (11.1-13.3)
[2024-02-23 14:30] LABS: Partial Thromboplastin Time 27.4 SEC (26.0-36.8)
[2024-02-23 14:43] LABS: Appearance Urine Clear; Color Urine Yellow; Glucose Urine UA Negative (Negative); Leukocyte Esterase Urine Small (1+) (Negative); Nitrite Urine Negative (Negative); Specific Gravity - Urine 1.015 (1.005-1.025); UMIC TRIGGER UACC YES; Urine Blood Large (3+) (Negative); Urine Ketones Negative (Negative); Urine Protein Trace mg/dL (Neg-Trace)
[2024-02-23 14:45] LABS: Alanine Aminotransferase 9 U/L (0-31); Albumin Level 4.2 g/dL (3.5-5.0); Alkaline Phosphatase 45 U/L (39-117); Anion Gap 9 (12-20); Aspartate Amino Transferase 16 U/L (5-31); Bilirubin Total 0.4 mg/dL (0.0-1.0); Blood Urea Nitrogen 9 mg/dL (9-16); Calcium 8.9 mg/dL (8.4-10.2); Carbon Dioxide 27 mmol/L (22-29); Chloride 107 mmol/L (96-108); Creatinine Clr Calc Pharmacy 88.2; Estimated Glomerular Filt Rate > 60; Glucose Random 101 mg/dL (60-115); Magnesium 1.9 mg/dL (1.6-2.6); Sodium 139 mmol/L (135-145); Total Protein 7.5 g/dL (6.5-8.0)
[2024-02-23 14:53] LABS: Bacteria Urine Trace (None Seen); Hyaline Casts Urine 0-2 /LPF (0-2); UACC Culture Trigger YES; WBC Urine 0-5 /HPF (0-5)
[2024-02-23 18:06] VITALS: BP 134/82; PULSE 100; RESP 18; TEMP 36.6; O2SAT 100
[2024-02-23 19:57] VITALS: BP 129/83; PULSE 87; RESP 18; TEMP 36.9; O2SAT 100
[2024-02-23 22:11] VITALS: BP 119/76; PULSE 88; RESP 16; TEMP 37.1
--- NOTE | 2024-02-23 22:28 | PC.NURSE ---
First unit of RBC started. No complications or reactions noted. VSS. Pt tolerating well. Monitoring is ongoing.
[2024-02-23 22:29] VITALS: BP 129/84; PULSE 83; RESP 14; TEMP 36.8
[2024-02-23 23:49] VITALS: BP 128/79; PULSE 83; RESP 14; TEMP 36.7; O2SAT 99
[2024-02-24 00:29] VITALS: BP 112/65; PULSE 87; RESP 14; TEMP 36.7
[2024-02-24 00:39] VITALS: BP 112/65; PULSE 87; RESP 14; TEMP 36.7; O2SAT 99
== END 2024-02-24 00:40 | disposition home or self-care (01) ==
PROVIDERS: Physician Assistant Medical; Emergency Provider Internal Medicine
DX: D64.9 Anemia, unspecified (principal); N93.9 Abnormal uterine and vaginal bleeding, unspecified; R10.2 Pelvic and perineal pain
CPT/HCPCS: 36415; 36430; 80053; 81001; 83735; 85025; 85610; 85730; 86850; 86900; 86901; 86923; 87086; 87147; 96360; 96361; 99285; P9016

== ENCOUNTER 2024-03-02 08:21 | Outpatient (REF) | payer OTHER, SELFPAY ==
[2024-03-02 08:57] LABS: MANUAL DIFF FLAG NO
[2024-03-02 09:02] LABS: Basophils Percent Auto 0.7 % (0-2); Eosinophils Absolute Auto 0.2 X10*3/uL (0.0-0.4); Eosinophils Percent Auto 3.5 % (0-4); Hematocrit 28.1 % (37.0-47.0); Hemoglobin 8.5 g/dl (12.0-16.0); Imm Gran Abs Auto 0.02 X10*3/uL (0.00-0.03); Imm Gran Pct Auto 0.4 % (0.0-0.4); Lymphocytes Absolute Auto 1.2 X10*3/uL (1.2-4.9); Lymphocytes Percent Auto 20.1 % (20-40); Mean Corpuscular HGB Conc 30.2 g/dl (31.0-35.0); Mean Corpuscular Hemoglobin 23.9 pg (27.0-33.0); Mean Corpuscular Volume 78.9 fL (80.0-98.0); Monocytes Absolute Auto 0.5 X10*3/uL (0.1-1.2); Monocytes Percent Auto 8.4 % (2-11); Neutrophils Absolute Auto 3.8 x10*3/uL (2.0-8.3); Neutrophils Percent Auto 66.9 % (45-73); Platelet Count 364 X10*3/uL (160-400); Red Blood Count 3.56 X10*6/uL (4.20-5.50); Red Cell Distribution Width 20.4 % (11.0-16.0); White Blood Count 5.7 X10*3/uL (4.8-10.8)
[2024-03-02 10:19] LABS: Alanine Aminotransferase 14 U/L (0-31); Albumin Level 4.2 g/dL (3.5-5.0); Alkaline Phosphatase 58 U/L (39-117); Anion Gap 14 (12-20); Aspartate Amino Transferase 13 U/L (5-31); Bilirubin Direct 0.1 mg/dL (0.0-0.5); Bilirubin Total 0.3 mg/dL (0.0-1.0); Blood Urea Nitrogen 9 mg/dL (9-16); Calcium 9.3 mg/dL (8.4-10.2); Carbon Dioxide 24 mmol/L (22-29); Chloride 107 mmol/L (96-108); Cholesterol 142 mg/dL (<200); Estimated Glomerular Filt Rate > 60; Glucose Random 90 mg/dL (60-115); HDL Cholesterol 46 mg/dL (>40); Iron 19 mcg/dL (30-160); LDL Cholesterol Calculated 77 mg/dL (<100); Percent Iron Saturation 5 % (15-50); Potassium 3.8 mmol/L (3.3-5.1); Sodium 141 mmol/L (135-145); Total Iron Binding Capacity 364 mcg/dL (228-428); Total Protein 7.5 g/dL (6.5-8.0); Triglycerides 98 mg/dL (<150); Unsaturated Iron Binding 345 ug/dL
[2024-03-02 10:41] LABS: Ferritin 25 ng/mL (10-250); TSH reflex Free T4 2.04 uIU/mL (0.32-4.0)
== END 2024-03-02 08:22 | disposition home or self-care (01) ==
LOC: HO.LAB 08:21
PROVIDERS: Advanced Practice Midwife; PCP Student in an Organized Health Care Education/Training Program; Visit Provider Student in an Organized Health Care Education/Training Program
DX: D50.9 Iron deficiency anemia, unspecified (principal); N93.9 Abnormal uterine and vaginal bleeding, unspecified
CPT/HCPCS: 36415; 80048; 80061; 80076; 82728; 83540; 84443; 85025; 85027

== ENCOUNTER 2024-03-14 15:23 | Outpatient (REF) | payer OTHER, SELFPAY ==
--- NOTE | ~2024-03-14 | US_ITS ---
EXAMINATION: US PELVIS CLINICAL INFORMATION: Uterine fibroid. COMPARISON: Ultrasound just over 1 month ago on 02/07/2024. TECHNIQUE: Ultrasound of the pelvis is performed using both transabdominal and transvaginal transducers along with Doppler. Transvaginal imaging is performed due to inadequate visualization transabdominally. FINDINGS: Uterus: The uterus is anteverted and measures 8.7 x 5.5 x 5.9 cm. The double wall endometrial thickness is 8 mm. Some fluid is seen in the endometrial canal and cervix. Nabothian cysts are present both simple and complex. The uterus is smooth in contour and has normal myometrial echogenicity. A single unchanged uterine fibroid is present at the fundus measuring 1.7 x 1.7 x 2.0 cm. Adnexa: Both ovaries are visualized. There is normal color-flow to the adnexa. There is no ovarian torsion. There is no pelvic ascites or fluid collection. Right ovary measures 2.3 x 2.3 x 1.5 cm for a volume of 4.2 mL and contains some punctate calcifications. Left ovary measures 3.3 x 3.6 x 2.5 cm for a volume of 15.6 mL and contains a simple-appearing cyst measuring 2.1 x 1.7 x 2.9 cm as well as hemorrhagic cyst measuring 1.2 x 1.5 x 1.7 cm. US/US pelvic and transvaginal IMPRESSION: 1. Stable uterine fibroid. 2. Left ovarian cysts. No follow up is needed.
== END 2024-03-14 15:24 | disposition home or self-care (01) ==
LOC: HO.US 15:23
PROVIDERS: PCP Student in an Organized Health Care Education/Training Program; Visit Provider Student in an Organized Health Care Education/Training Program
DX: N93.9 Abnormal uterine and vaginal bleeding, unspecified (principal)
CPT/HCPCS: 76830; 76856

== ENCOUNTER 2024-04-05 12:49 | Outpatient (AMB) | payer OTHER, SELFPAY ==
--- NOTE | 2024-04-05 12:53 | MHC.OFFVIS ---
Vital Signs 04/05/24 12:58 Height 5 ft 3.5 in Weight 143 lb BMI 24.9 BP 120/82 Intake Visit Reasons: New patient AUB Azure Architect Required: Yes Azure Architect Language: Gas Mask Inspector Name: Luciana SOARES Information Interpreted: non-clinical & clinical Shank Sander: Shank Sander Present (Luciana SOARES) Accompanied by: Self / Same As Patient Allergies No Known Allergies Allergy (Verified 04/05/24 13:00) Is last menstrual period known: Yes HPI Comments Details: Patient is here today for a follow up for abnormal uterine bleeding. History of heavy menstrual bleeding in January requiring blood transfusions. Last month her cycle was normal. Today she reports a fishy odor. She has currently not sexually active and denies any risk to . Ultrasound was ordered by her regular learning designer provider. [facility] Medical History Allergic rhinitis Acute upper respiratory infection Constipation Abdominal pain Acute sinusitis GERD (gastroesophageal reflux disease) Family History (Updated 04/05/24 @ 13:03 by Luciana Bartlett CMA) Brother Diabetes Father Diabetes Sister HTN (hypertension) Mother HTN (hypertension) Family/Other Breast cancer Other No family history of cancer Social History (Updated 04/05/24 @ 13:04 by Luciana Bartlett CMA) Household Members: None Housing: House Are you a primary patient centered care specialist to a significant other at home: No Do you presently have visiting nurse or other home services: No Alcohol intake: current Alcohol intake frequency: holidays/special occasions only Patient Tobacco Use Status: Never used Tobacco service: No Current occupational status: employed 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 Sexual orientation: Straight/Heterosexual Gender identity: Female Female Reproductive History Menstrual Total pregnancies: 1 Full term: 1 Number of Living Children: 1 Review of Systems Const All systems reviewed & are unremarkable except as noted in HPI and below Physical Exam Vital Signs: Last Vital Signs BP 120/82 04/05/24 12:58 BMI result Body Mass Index 24.9 Const General: cooperative, healthy appearing and no acute distress Orientation/consciousness: patient oriented x3 GI Inspection: Yes normal to inspection Palpation (GI): Soft to palpation and Other GI palpation findings present (Nontender) Rectal Exam - Female: visual inspection normal General: Yes bladder normal to palpation External Female Exam: normal appearance of the urethra Speculum Exam - Vagina: normal appearance of the vagina, normal palpation, normal vaginal discharge and abnormal vaginal discharge clear and malodorous Speculum Exam - Cervix: normal appearance of the cervix and normal palpation Bimanual exam- vagina & uterus: normal bimanual exam, normal palpation, uterine size normal, bladder normal to palpation, normal palpation, uterine shape normal and non-tender Bimanual Exam- Adnexa, other: normal adnexae Neuro General: patient oriented x3 Results AMB Test Urine AMB Test Urine Negative Last Edit by Luciana Bartlett CMA on 04/05/24 13:23 Assessment & Plan Assessment & Plan (1) Abnormal uterine bleeding (AUB): Code(s): N93.9 - Abnormal uterine and vaginal bleeding, unspecified Category: Medical (2) Vaginal odor: Code(s): N89.8 - Other specified noninflammatory disorders of vagina Plan Discussed: Ultrasound findings-stable fibroid noted. BV panel and GC chlamydia obtained. Pap smear on record from January 2024 is negative. Counseled regarding the workup to include an endometrial biopsy. Anticipatory guidance biopsy planning to include eating and drinking the date biopsy and taking 3 Advil 1 hour before the procedure. Consider options for management of abnormal uterine bleeding to include and not limited to a Mirena IUD, booklet given for her review. Appointment to be scheduled for EMB pending treatment for BV or any other infections prior to procedure await culture results for plan of care. All of her questions and concerns were addressed to the best of my ability and shared decision making. She is agreeable to the plan of care. This note is constructed using voice recognition software. While every effort has been made to ensure accuracy, real estate legal secretary errors may have been included. Orders: Orders AMB HCG Urine Test Today Z32.02 - Encounter for test, result negative Coding Level of Care Code New Pt Level 3 (52545) Diagnoses Abnormal uterine bleeding (AUB) N93.9 Vaginal odor N89.8
[2024-04-05 12:58] VITALS: BP 120/82; BMI 24.9
== END 2024-04-05 14:13 | disposition home or self-care (01) ==
PROVIDERS: PCP Student in an Organized Health Care Education/Training Program; Visit Provider Advanced Practice Midwife
DX: N93.9 Abnormal uterine and vaginal bleeding, unspecified (principal); N89.8 Other specified noninflammatory disorders of vagina; Z32.02 Encounter for pregnancy test, result negative
CPT/HCPCS: 99203

== ENCOUNTER 2024-04-05 12:49 | Outpatient (REF) | payer OTHER, SELFPAY ==
[2024-04-05 17:10] LABS: Bacterial Vaginosis PCR POSITIVE (Negative); Candida Group PCR DETECTED (Not Detect); Candida glab krusei PCR NOT DETECTED (Not Detect); Trichomonas vaginalis PCR NOT DETECTED (Not Detect)
[2024-04-05 17:40] LABS: CT PCR NOT DETECTED (Not Detect.); NG PCR NOT DETECTED (Not Detect.)
== END 2024-04-05 12:50 | disposition home or self-care (01) ==
LOC: HO.LNP 12:49
PROVIDERS: PCP Student in an Organized Health Care Education/Training Program; Visit Provider Advanced Practice Midwife
DX: N93.9 Abnormal uterine and vaginal bleeding, unspecified (principal); N89.8 Other specified noninflammatory disorders of vagina
CPT/HCPCS: 0352U; 0353U; 81025; 99202

== ENCOUNTER 2024-04-09 15:53 | Outpatient (REF) | payer OTHER, SELFPAY ==
--- NOTE | ~2024-04-09 | MM_ITS ---
EXAMINATION: MM SCREENING DIGITAL BREAST TOMOSYNTHESIS, BILATERAL CLINICAL INFORMATION: Screening. Asymptomatic. COMPARISON: Mammography: This study is compared with prior exams dating back to 2013. TECHNIQUE: Digital breast tomosynthesis is performed in both the craniocaudal and mediolateral oblique views along with computer-aided detection (CAD). Synthesized 2D images are generated from the tomosynthesis. FINDINGS: The breasts are heterogeneously dense, which may obscure small masses (ACR BI-RADS breast composition Category c). There are no significant masses, abnormal calcifications, or other abnormalities. There is a tissue marker in the superior aspect of the left breast from prior benign percutaneous biopsy. Associated with a small, mammographically benign mass. MM/MM tomosynthesis screening BI IMPRESSION: No mammographic evidence of malignancy. ASSESSMENT: BI-RADS BI-RADS 2 - Benign Findings RECOMMENDATION: Routine annual mammography screening. 1 year F/U This examination should not preclude the clinical evaluation of a suspicious palpable abnormality. This patient's information was entered into a reminder system with a target due date for their next mammogram.
== END 2024-04-09 15:54 | disposition home or self-care (01) ==
LOC: HO.MAMMO 15:53
PROVIDERS: PCP Student in an Organized Health Care Education/Training Program; Visit Provider Student in an Organized Health Care Education/Training Program
DX: Z12.31 Encounter for screening mammogram for malignant neoplasm of breast (principal)
CPT/HCPCS: 77063; 77067

== ENCOUNTER → 2024-04-09 16:15 | Outpatient (BNV) | payer OTHER, SELFPAY | PROVIDERS: PCP Student in an Organized Health Care Education/Training Program; Visit Provider Radiology Diagnostic Radiology | DX: Z12.31 Encounter for screening mammogram for malignant neoplasm of breast (principal) | CPT/HCPCS: 77063; 77067 ==

== ENCOUNTER 2024-04-17 09:13 | Outpatient (AMB) | payer OTHER, SELFPAY ==
[2024-04-17 09:12] VITALS: BP 126/70; PULSE 77; TEMP 36.6; O2SAT 99; BMI 25.8
--- NOTE | 2024-04-17 09:12 | AM.OFFWIN_ITS ---
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 Denies any irritant or foreign object in eye. States she woke up with yellow crust on lashes. Has some photophobia and mildly blurry vision in that eye. Does not wear contact lenses. [facility], [facility] Medical History Allergic rhinitis Acute upper respiratory infection Constipation Abdominal pain Acute sinusitis GERD (gastroesophageal reflux disease) Family History Brother Diabetes Father Diabetes Sister HTN (hypertension) Mother HTN (hypertension) Family/Other Breast cancer Other No family history of cancer Social History Household Members: None Housing: House Are you a primary ocular care aide to a significant other at home: No Do you presently have visiting nurse or other home services: No Alcohol intake: current Alcohol intake frequency: holidays/special occasions only Patient Tobacco Use Status: Never used Tobacco service: No Current occupational status: employed 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 Sexual orientation: Straight/Heterosexual Gender identity: Female Review of Systems Const All systems reviewed & are unremarkable except as noted in HPI and below Eyes Reports photophobia (right) Physical Exam Vital Signs: Last Vital Signs Temp 97.9 F 04/17/24 09:12 Pulse 77 04/17/24 09:12 BP 126/70 04/17/24 09:12 Pulse Ox 99 04/17/24 09:12 Oxygen Delivery Method Room Air 04/17/24 09:12 BMI result Body Mass Index 25.8 Const General: cooperative, healthy appearing and no acute distress HEENT Head: Yes normal to inspection General nose exam: Normal external nose present Eyes Alignment and Position: alignment normal Eyelids: Yes eyelids normal Conjunctivae: conjunctival abnormal right conjunctival injection diffuse and discharge mucoid Pupils: Equal, round and reactive pupils present Direct Ophthalmoscopy: normal light reflex and photophobia (right) Neck Neck: Yes no lymphadenopathy Resp Effort & Inspection: normal respiratory effort Skin General skin exam: no rashes or lesions noted Neuro Cranial nerves: Yes Equal, round and reactive pupils present Psych Appearance: grossly normal Mental Status: mental status grossly normal Speech and movement: Normal speech and movement present Assessment & Plan Assessment & Plan (1) Conjunctivitis, right eye: Code(s): H10.9 - Unspecified conjunctivitis Qualifiers: Conjunctivitis type: acute Acute conjunctivitis type: unspecified Qualified Code(s): H10.31 - Unspecified acute conjunctivitis, right eye Plan: Erythromycin for right eye prescribed. Patient instructed on use. Reviewed prop er hand hygiene and advised to wash pillow cases/change eye makeup. If symptoms do not improve over the next several days, or if symptoms worsen, she should return to the clinic for further evaluation. She agrees to plan. Medications: New erythromycin Apply 0.5 inch to lower lid of left eye 4 times daily for 5 days 1 appl ophthalmic (eye) QID 5 days 3.5 grams 1RF H10.31 - Unspecified acute conjunctivitis, right eye Coding Level of Care Code Est Pt Level 4 (65312) Diagnoses Acute conjunctivitis of right eye, unspecified acute conjunctivitis type H10.31 Conjunctivitis type: acute Acute conjunctivitis type: unspecified
== END 2024-04-17 10:04 | disposition home or self-care (01) ==
PROVIDERS: PCP Student in an Organized Health Care Education/Training Program; Visit Provider Nurse Practitioner Family
DX: H10.31 Unspecified acute conjunctivitis, right eye (principal)
CPT/HCPCS: 99214

== ENCOUNTER 2024-04-19 11:21 | Outpatient (AMB) | payer OTHER, SELFPAY ==
[2024-04-19 11:29] VITALS: BP 128/78; PULSE 89; TEMP 36.8; O2SAT 98; BMI 25.5
--- NOTE | 2024-04-19 11:29 | AM.OFFWIN_ITS ---
Intake Vital Signs 3 04/19/24 11:29 Height 5 ft 3.5 in Weight 146 lb BMI 25.5 BP 128/78 Blood Pressure Location Lt brachial Position Sitting Pulse 89 Pulse Source Pulse Oximeter Temp 98.2 F Temp Source Temporal Artery Scan Pulse Oximetry (%) 98 Oxygen Delivery Method Room Air Intake Visit Reasons: EP RT eye swelling/red/LT now starting/seen 04/17 Intake Note: pt is here today for eye swelling re lft now started started 04/17 Patient Tobacco Use Status: Never used Tobacco Allergies No Known Allergies Allergy (Verified 04/19/24 11:31) Medication List - Last Reconciled 04/19/24 by Elier Marroquin MD cetirizine 1 tab PO DAILY erythromycin 1 appl ophthalmic (eye) QID 5 days ferrous sulfate (Iron (ferrous sulfate)) 325 mg PO Q OTHER DAY fluconazole 150 mg PO DAILY 1 dose lidocaine 5% (Lidoderm) 1 patch topical DAILY metronidazole 500 mg PO BID 7 days omeprazole 1 cap PO DAILY Do you need a note to return to daycare/school/sports/work: No HPI EP RT eye swelling/red/LT now starting/seen 04/17 2 HPI0 Details Patient is a 48-year-old female who was last evaluated in our walk-in clinic on of this month and was diagnosed with right eye conjunctivitis She was prescribed erythromycin eye ointment which did not help her. Her right eye still has conjunctivitis and now she also has it in her left eye Patient is complaining of discomfort over cheek as well right side Vision feels blurry due to discharge On examination she has slight discomfort with palpation eyelids are also inflamed right eye Slight tenderness over right temporomandibular joint But no clear erythema on the cheek noticed Pupil are equally reactive EOMI Review system revealed no fever no chills no nausea no vomiting no headache no dizziness no shortness a breath I am treating her with oral Augmentin for 7 days for the pain she has experiencing over the cheek And Polytrim eyedrops to be used every 3 hour while awake for 7 days both eyes I would recommend to follow-up on Monday to make sure she is getting better. [facility] Medical History Allergic rhinitis Acute upper respiratory infection Constipation Abdominal pain Acute sinusitis GERD (gastroesophageal reflux disease) Family History Brother Diabetes Father Diabetes Sister HTN (hypertension) Mother HTN (hypertension) Family/Other Breast cancer Other No family history of cancer Social History Household Members: None Housing: House Are you a primary ostomy care nurse to a significant other at home: No Do you presently have visiting nurse or other home services: No Alcohol intake: current Alcohol intake frequency: holidays/special occasions only Patient Tobacco Use Status: Never used Tobacco service: No Current occupational status: employed 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 Site of pain, no clear erythema Eyes Other: Both eyes conjunctivitis inflamed with discharge her right more than left, right eyelids inflamed as well Resp Effort & Inspection: normal respiratory effort and able to speak in complete sentences Neuro General: patient oriented x3 Psych Mental Status: mental status grossly normal Assessment & Plan Assessment & Plan (1) Conjunctivitis, acute, bilateral: Code(s): H10.33 - Unspecified acute conjunctivitis, bilateral Qualifiers: Acute conjunctivitis type: unspecified Qualified Code(s): H10.33 - Unspecified acute conjunctivitis, bilateral (2) Blepharitis, right eye: Code(s): H01.003 - Unspecified blepharitis right eye, unspecified eyelid Qualifiers: Blepharitis type: unspecified type Eyelid: both upper and lower Q ualified Code(s): H01.00A - Unspecified blepharitis right eye, upper and lower eyelids (3) Right facial pain: Code(s): R51.9 - Headache, unspecified Plan Patient is a 48-year-old female who was last evaluated in our walk-in clinic on of this month and was diagnosed with right eye conjunctivitis She was prescribed erythromycin eye ointment which did not help her. Her right eye still has conjunctivitis and now she also has it in her left eye Patient is complaining of discomfort over cheek as well right side Vision feels blurry due to discharge On examination she has slight discomfort with palpation eyelids are also inflamed right eye Slight tenderness over right temporomandibular joint and right maxillary But no clear erythema on the cheek noticed Pupil are equally reactive EOMI Review system revealed no fever no chills no nausea no vomiting no headache no dizziness no shortness a breath I am treating her with oral Augmentin for 7 days for the pain she has experiencing over the cheek And Polytrim eyedrops to be used every 3 hour while awake for 7 days both eyes I would recommend to follow-up on Monday to make sure she is getting better. Medications: New 2 polymyxin B sulf-trimethoprim 10,000 unit- 1 mg/mL while awake; do not exceed 6 doses in 24 hours 1 drp ophthalmic (eye) Q3H 7 days 10 mL 0RF amoxicillin-pot clavulanate 500-125 mg (Augmentin) 1 tab PO BID 7 days 14 tabs 0RF Coding Level of Care Code Est Pt Level 4 (75137) Diagnoses Acute conjunctivitis of both eyes, unspecified acute conjunctivitis type H10.33 Acute conjunctivitis type: unspecified Blepharitis of both upper and lower eyelid of right eye, unspecified type H01.00A Blepharitis type: unspecified type Eyelid: both upper and lower Right facial pain R51.9
== END 2024-04-19 12:50 | disposition home or self-care (01) ==
PROVIDERS: PCP Student in an Organized Health Care Education/Training Program; Visit Provider Internal Medicine
DX: H10.33 Unspecified acute conjunctivitis, bilateral (principal); H01.00A Unspecified blepharitis right eye, upper and lower eyelids; R51.9 Headache, unspecified
CPT/HCPCS: 99214